=== PATIENT | male | born 1960 | race Hispanic/Latino ===

== ENCOUNTER 2017-04-29 09:11 | Inpatient (IN) | payer MEDICAID, MEDICARE ==
[2017-04-29 09:13] VITALS: BMI 19.7
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
[2017-04-29 09:59] LABS: BASO # 0.02 K/mm3 (0.0-2.0); BASO % 0.5 % (0.0-3.0); EOS # 0.1 (0.0-0.7); EOS % 1.9 % (1.5-5.0); GRAN # 2.13 (1.4-6.5); GRAN % 56.6 % (50.0-68.0); HEMATOCRIT 37.1 % (42.0-52.0); LYMPH # 1.2 (1.2-3.4); LYMPH % 30.9 % (22.0-35.0); MEAN CELL VOLUME 89.4 fl (80.0-105.0); MEAN CORPUSCULAR HEMOGLOBIN 29.9 pg (25.0-35.0); MEAN CORPUSCULAR HGB CONC 33.4 g/dl (31.0-37.0); MONO # 0.4 (0.1-0.6); MONO % 10.1 % (1.0-6.0); RED CELL DISTRIBUTION WIDTH 14.6 % (11.5-14.5); WHITE BLOOD COUNT 3.8 10^3/ul (4.5-11.0)
[2017-04-29 10:07] VITALS: O2SAT 100
[2017-04-29 10:08] LABS: ALB/GLOB RATIO 1.3 (1.1-1.8); ALKALINE PHOSPHATASE 77 U/L (38-126); ALT/SGPT 27 U/L (7-56); AST/SGOT 40 U/L (17-59); BILIRUBIN,TOTAL 0.8 mg/dL (0.2-1.3); BLOOD UREA NITROGEN 23 mg/dL (7-21); CARBON DIOXIDE 26 mmol/L (21-33); CHLORIDE 102 mmol/L (98-107); GFR AFRICAN-AMERICAN > 60; GLUCOSE,RANDOM 146 mg/dL (70-110); POTASSIUM 4.1 mmol/L (3.6-5.0); SODIUM 139 mmol/L (132-148); TOTAL PROTEIN 7.4 g/dL (5.8-8.3)
--- NOTE | 2017-04-29 10:23 | RAD ---
HISTORY: medical clearance COMPARISON: No prior. FINDINGS: LUNGS: No active pulmonary disease. PLEURA: No significant pleural effusion identified, no pneumothorax apparent. CARDIOVASCULAR: Normal. OSSEOUS STRUCTURES: No significant abnormalities. VISUALIZED UPPER ABDOMEN: Normal. OTHER FINDINGS: None. IMPRESSION: No active disease.
[2017-04-29 13:18] LABS: PH,URINE 5.5 (4.7-8.0); URINE BILIRUBIN NEGATIVE (NEGATIVE); URINE BLOOD NEGATIVE (NEGATIVE); URINE GLUCOSE (UA) NEGATIVE (NEGATIVE); URINE KETONE NEGATIVE (NEGATIVE); URINE LEUKOCYTE ESTERASE NEGATIVE Leu/uL (NEGATIVE); URINE PROTEIN NEGATIVE mg/dL (<30 mg/dL); URINE UROBILINOGEN 0.2 E.U./dL (<1 E.U./dL)
[2017-04-29 13:21] LABS: URINE APPEARANCE CLEAR (CLEAR); URINE COLOR YELLOW (YELLOW)
--- NOTE | 2017-04-29 13:32 | CARD ---
APPROVED REPORT EKG Measurement Heart [id number] SD [id number] [id number] <Conclusion> Normal sinus rhythm Possible Left atrial enlargement Borderline ECG
[2017-04-29 18:23] VITALS: RESP 20
[2017-04-29] MEDS: Multivitamin Therapeutic Tab PO SCH (18:59)
--- NOTE | 2017-04-29 19:20 | PCM.BM ---
<Manny Dillon - Last Filed: 04/30/17 12:27> Treatment Plan Problems - Problems identified on initial assessmt HOPELESSNESS Date Initiated: 04/29/17 Time Initiated: 19:18 Assessment reference: NA Status: Active INEFFECTIVE COPING Date Initiated: 04/29/17 Time Initiated: 19:19 Assessment reference: NA Status: Active ALCOHOL ABUSE Date Initiated: 04/29/17 Time Initiated: 19:20 Assessment reference: NA Status: Active Treatment assets and liabiliti Patient Assests: cooperative, self-reliant, cognitively intact Patient Liabilities: live alone, substance abuse, medical problems - Milieu Protocol Maintain good personal hygiene: daily Encourage regular showers, daily Remind patient to perform daily oral care, daily Assist patient to perform ADL's Maintain personal safety: daily Educate patient to report safety concerns to staff, daily Monitor environment for contraband/sharps Medication safety: Monitor for expected outcome, potential side effects: daily, Assess barriers to learning: daily, Assess readiness for medication education: daily Family Contact Family involvement: See/LAURA not involved Family contact: Family meeting planned to review treatment plan Discharge/Continuing Care - Education Needs Education Needs: Patient Medication, Patient Diagnosis/Disease Process, Patient Coping Skills, Patient Anger Management skills, Patient Placement options, Patient Community resources, Patient Activities of Daily Living, Patient Health Practices/Safety, Patient Personal Hygiene/Grooming, Patient Aftercare Safety Plan - Discharge Discharge Criteria: Tolerates medication w/o severe side effects, Free of Suicidal thoughts, Free of Homicidal thoughts, Normal sleep pattern, Ability to care for self, No longer exhibiting s/s of withdrawal Discharge to:: Home <Cathy Maier - Last Filed: 04/30/17 14:25> - Diagnosis (1) Substance induced mood disorder Status: Acute Interventions: 04/30/17 14:26 Psychoeducation Psychopharmacology/adjustment of medications as needed/ monitoring possible side effects Evaluate pt on daily basis Compliance with medications and follow up appointments Suicide and homicide risk assessment and prevention Relapse prevention Reduction of symptoms Improve functional status Family involvement if it is possible (2) Alcohol use disorder Status: Acute Interventions: 04/30/17 14:27 Monitoring withdrawal symptoms Medical detoxification Pharmacotherapy for alcohol/benzos/opioid dependence Maintaining sobriety Relapse prevention Possible rehabilitation Motivational interviewing 12-step programs: AA meetings <Margarita Schuler - Last Filed: 05/03/17 09:05> Family Contact Family involvement: Famliy/SO not involved
--- NOTE | 2017-04-29 22:04 | CON ---
HISTORY OF PRESENT ILLNESS: The patient is a 57-year-old male, history of polysubstance abuse, history of depression, most likely has a history of mood disorder due to chronic substance abuse. The patient came to the hospital for evaluation of depressive symptoms and possible suicidal ideations. The patient initially was cleared by this principal technical writer, but before leaving the hospital, the patient said that he wants to kill himself and if he will leave the hospital he will jump in front of the train or in front of the car. This principal technical writer will admit the patient for observation and stabilization. The patient is familiar to this principal technical writer from the previous admissions and to the psychiatric inpatient unit, which took place here in [place] 2015. The patient has history of alcohol use disorder, history of opiate use disorder, multiple admissions to the detox and rehabs in the past. The patient was evaluated in the emergency room. The patient presented to be alert and oriented. The patient said that he discussed with his because he relapse on drugs and he is drinking daily a pint of vodka as well as snorting heroin about 1 pack a day. The patient also was using benzodiazepines "once in a while." The patient reported now he feels hopeless and helpless, and he is careless about the fact that he is alive or not. At the same time, the patient's behavior proved the statement wrong. The patient is finding the way to be admitted to the hospital. At the same time, the patient was seen in [facility] yesterday and the patient was discharged. Going back to the previous history, the patient was on Seroquel as well as thiamine, folic acid and multivitamin. The patient is not on any antidepressants. PHYSICAL EXAMINATION: VITAL SIGNS: Stable. Temperature 98.7, pulse is 79, blood pressure 127/70, respirations 19, and oxygen saturation is 100%. MEDICATIONS: Reviewed. PAST MEDICAL HISTORY: The patient said that he has history of hypertension and he had back injury about 2 months ago and since that time he has chronic back pain. MENTAL STATUS EXAMINATION: The patient appears to be very thin built, cachectic male, lot of tattoos, intermittent eye contact. Flat affect. The patient was underproductive, low volume. Thought process was coherent and goal directed. Thought content, the patient denied visual, auditory, tactile hallucinations. The patient was verbalizing thoughts of killing himself with a plan to jump in front of the traffic or train; secondary gain cannot be excluded. Insight and judgment are limited. Impulses are non-predicable. IMPRESSION: Rule out substance-induced mood disorder, rule out major depressive disorder. The patient also has history of alcohol use disorder, opiate use disorder, back injury. PLAN: The patient will be admitted to the psychiatric inpatient unit for further evaluation and stabilization. The patient will be started on Remeron at the night time for insomnia as well as multivitamin, thiamine and folic acid. The patient also will be given Ativan for a possible withdrawal seizures and withdrawal symptoms. Symptomatic treatments were possible opioid withdrawals. The patient will be seen by medical team. The patient will be admitted to the psychiatric unit today. Thank you very much for letting us participate in care of your patient. Cathy Maier MD
[2017-04-30 07:46] LABS: CHOLESTEROL 154 mg/dL (130-200); GLUCOSE,FASTING 99 mg/dL (65-110)
[2017-04-30 08:03] LABS: FREE T4 0.88 ng/dL (0.78-2.19)
[2017-04-30 08:17] LABS: THYROID STIMULATING HORMONE 0.88 mIU/mL (0.46-4.68)
[2017-04-30] MEDS: Multivitamin Therapeutic Tab PO SCH (08:47)
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
[2017-04-30 18:31] LABS: IRON 92 ug/dL (45-180)
[2017-04-30 21:54] LABS: FOLATE > 20.0 ng/mL
[2017-05-01 07:44] LABS: HEMATOCRIT 36.1 % (42.0-52.0); MEAN CELL VOLUME 89.4 fl (80.0-105.0); MEAN CORPUSCULAR HGB CONC 33.5 g/dl (31.0-37.0); MEAN PLATELET VOLUME 9.6 fl (7.0-11.0); RED CELL DISTRIBUTION WIDTH 14.4 % (11.5-14.5)
[2017-05-01 07:59] LABS: WHITE BLOOD COUNT 2.7 10^3/ul (4.5-11.0)
--- NOTE | 2017-05-01 08:53 | PCM.PYCHPN ---
Psychiatric Progress Note - Psychiatric Progress Note Patient seen today, length of contact: 25 min Patient Chief Complaint: "okay" Problems Identified/Issues Discussed: I reviewed assessment and recent notes. Patient was interviewed at bedside. He is calm and oriented to month, location and year. Reports that he's feeling "okay" and denies any new concerns. Still feels a little nauseated. Responses are brief and relevant to questioning. Affect is calm and constricted. Patient denies hallucinations. Thought process is fairly coherent. Presently he denies any new side effects. Nursing notes indicate that patient has been manageable but reclusive. Not going to groups. There were no behavioral issues overnight. Diagnostic Results: r/o MDD r/o substance induced psychosis alcohol use disorder alcohol withdrawals r/o malingering Medication Change: No Medical Record Reviewed: Yes Mental Status Examination - Cognitive Function Orientation: Person, Place, Situation, Time Attention: WNL Concentration: Poor - Mood Mood: Depressed ("okay"), Anxious - Affect Affect: Constricted, Flat - Formal Thought Process Formal Thought Process: No Impairment - Suicidal Ideation Suicidal Ideation: No - Homicidal Ideation Homicidal Ideation: No Goal/Treatment Plan - Goal/Treatment Plan Progress Toward Problem(s) and Goals/Treatment Plan: * c/w current tx and plan * Taper ativan as tolerated * No new weekend labs thus far * Vitals reviewed and noted below: Selected Entries 04/30/17 04/30/17 07:18 16:00 Temperature 97.5 F L Pulse Rate 78 90 Respiratory 20 Rate Blood Pressure 135/81 143/91 H
[2017-05-01] MEDS: Multivitamin Therapeutic Tab PO SCH (10:54)
--- NOTE | 2017-05-02 00:38 | PN ---
DATE: 05/01/2017 SUBJECTIVE: This is a 57-year-old male who was examined at his bedside and his case was reviewed in detail with nursing. He was hospitalized because of suicidal ideation in the setting of recurrent depression and chronic anxiety neurosis. The patient at present has pancytopenia most likely secondary to recent alcohol abuse and misuse. The patient denies any fever, chills, shortness of breath, nausea or vomiting at present and he is tolerating diet and medication. PHYSICAL EXAMINATION VITAL SIGNS: Temperature 97.8, respirations 20, pulse 73 and blood pressure 138/91 with a pulse ox of 100% on room air. HEENT: Head is normocephalic and atraumatic. Eyes; no icterus. Ears clear. Throat non-injected. NECK: Supple. HEART: Regular S1 and S2. LUNGS: Clear. ABDOMEN: Soft. EXTREMITIES: No clubbing, no cyanosis, no edema. SKIN: Has multiple tattoos on arms and legs. VASCULAR: Legs are warmth to touch. PSYCHOLOGICAL: Alert and oriented x3. NEUROLOGIC: Grossly intact. LABORATORY DATA: White count 2700, hemoglobin 12.1, hematocrit 36.1, platelets 83,000. Sodium 139, K 4.1, chloride 102, bicarb 26, BUN 23, creatinine 0.9, random blood sugar was 146. Iron level normal 92, TIBC 327%, saturation 28% normal, ferritin 144 normal, B12 248, folate greater than 20, free T4 0.88, TSH 0.88 normal. Cholesterol 154, LDL 60, HDL 78, and triglycerides 32. Urinalysis unremarkable. Alcohol level on admission elevated at 93. Urine positive for opiates and benzodiazepine. RPR nonreactive. IMPRESSION: A 57-year-old male with pancytopenia most likely on the basis of acute alcohol abuse and chronic alcoholism with history of treated hepatitis C in his past, also with history of hypertension, and recurrent depression. Admitted with suicidal ideation and multiple medical problems as listed above. PLAN: At the present time is to maintain this patient in the psychiatric rizvi and I have placed the consultation with Phani Olea from Hematology and Oncology regarding pancytopenia. He will continue on Ativan 2 mg p.o. q.i.d., folic acid 1 mg p.o. daily, Geodon 20 mg IM t.i.d. p.r.n. agitation, Remeron 15 mg p.o. at bedtime, Seroquel 50 mg p.o. t.i.d. p.r.n. anxiety, multivitamin 1 tablet daily, thiamine 100 mg p.o. daily, Zestril 5 mg p.o. daily and he is tolerating regular diet. The patient has been informed of the consequences of his persistent abuse of alcohol and has adverse effect on his hematological systems including the pancytopenia that he currently has and the dangers of his drug misuse syndrome with his past history of hepatitis as well. The patient states that upon discharge, he will be residing with his daughter and I have expressed that he will need close outpatient follow up with his primary care physician regarding all of his medical issues as well. Hopefully, he will be compliant with these recommendations. Greater than fifty minutes was spent in the care, discussion and management of this patient today with himself, nursing and co-consultants. Krystin Kwan MD MTDSilvana
[2017-05-02] MEDS: Multivitamin Therapeutic Tab PO SCH (08:25)
--- NOTE | 2017-05-02 08:36 | PCM.PYCHPN ---
Psychiatric Progress Note - Psychiatric Progress Note Patient seen today, length of contact: 25 min Patient Chief Complaint: "okay" Problems Identified/Issues Discussed: I reviewed recent notes and patient was interviewed at bedside. He remains calm and well-oriented to month, location and year. Reports that he's feeling "okay" and improved since admission. Feel stressed because he has "a lot of things to do and a lot hanging over my head". Indicates he needs to set up his checking account and mailbox. This is why he would like to be discharged. He denies any other concerns. Nausea has remitted. Patient's responses are coherent and relevant to questioning. Affect is calm with great range today. Patient denies hallucinations. Thought process is coherent. Presently he denies any side effects. Nursing notes indicate that patient has been manageable and quiet. Socializes at times. There were no major behavioral issues over the weekend. Diagnostic Results: r/o MDD r/o substance induced psychosis alcohol use disorder alcohol withdrawals r/o malingering Medication Change: Yes (Decreased ativan from 2 mg QID to 2 mg TID on 05/02/17) Medical Record Reviewed: Yes Mental Status Examination - Cognitive Function Orientation: Person, Place, Situation, Time Attention: WNL Concentration: Poor - Mood Mood: Depressed ("okay"), Anxious - Affect Affect: Constricted, Flat - Formal Thought Process Formal Thought Process: No Impairment - Suicidal Ideation Suicidal Ideation: No - Homicidal Ideation Homicidal Ideation: No Goal/Treatment Plan - Goal/Treatment Plan Progress Toward Problem(s) and Goals/Treatment Plan: * c/w current tx and plan * Patient put in a 48 hour letter at 1 pm on 05/01/17 * Appreciate f/u by Dr. Kwan on 05/01/17~calling HEME/ONC consult for pancytopenia * Decreased ativan from 2 mg QID to 2 mg TID on 05/02/17, continue taper as tolerated * Vitals reviewed and noted below: Selected Entries 05/02/17 05/02/17 07:18 08:25 Temperature 97.4 F L Pulse Rate 76 76 Respiratory 20 Rate Blood Pressure 138/87 138/87 * Weekend labs noted below: Laboratory Results - last 24 hr 05/01/17 07:30 WBC 2.7 L* D RBC 4.04 Hgb 12.1 L Hct 36.1 L MCV 89.4 MCH 30.0 MCHC 33.5 RDW 14.4 Plt Count 83 L MPV 9.6
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
--- NOTE | 2017-05-02 20:58 | PN ---
DATE: 05/02/2017 SUBJECTIVE: This 57-year-old male remains hospitalized in room 508, bed 1. His case was reviewed in detail with himself and his nurse, Jackson Maciel RN. The patient remains anxious. He is being followed daily by psychiatry and has multiple medical problems including anxiety, recurrent depression, suicidal ideation, chronic hypertension and pancytopenia in the setting of alcohol abuse. The patient at present denies any fever or chills, chest pain, shortness of breath, nausea, vomiting or diarrhea. PHYSICAL EXAMINATION: GENERAL: Temperature is 97.4, respirations 20, pulse 76 and blood pressure 138/87, and pulse ox was 100% on room air. HEENT: Head is normocephalic and atraumatic. Eyes, no icterus. NECK: Supple. HEART: Regular S1 and S2. LUNGS: Clear. ABDOMEN: Soft. EXTREMITIES: No edema. SKIN: Without rash. NEUROLOGICAL: Intact. PSYCHOLOGICAL: Chronic anxiety. VASCULAR: Legs warm to touch. LABORATORY DATA: White count 2700, hemoglobin 12.1, hematocrit 36.1, platelets 83,000. Sodium 139, potassium 4.1, chloride 102, bicarb 26, BUN 23, creatinine 0.9, random blood sugar 99. Iron level 92, TIBC 327%, saturation 28%, ferritin 144. Cholesterol 154, B12 of 248, folic acid level greater than 20, free T4 normal at 0.88. Urinalysis unremarkable. Urine drug screen positive for opiates and benzodiazepine. Alcohol level 93 on admission. RPR nonreactive. IMPRESSION: This is a 57-year-old male with anxiety, depression, suicidal ideation, history of chronic hypertension, now with pancytopenia in the setting of alcohol abuse and misuse and history of treated hepatitis C in his past. PLAN: At present is to continue Zestril 5 mg p.o. daily, thiamine 100 mg p.o. daily, multivitamin 1 tablet p.o. daily, Seroquel 50 mg p.o. t.i.d. p.r.n., Remeron 15 mg p.o. at bedtime, folic acid 1 mg p.o. daily and Ativan 2 mg p.o. t.i.d. He continues on a regular diet. He is being monitored closely by the psychiatric nursing team. He is awaiting a hematology evaluation for pancytopenia by Dr. Stephen Jeronimo. He will need close outpatient psychiatric and medical follow up with his PMD when cleared for discharge. All of the above was discussed in detail with the patient and nursing, and overall prognosis remains poor given his multiple comorbidities and persistent history of alcohol and drug including heroin misuse. Krystin Kwan MD MTDD
[2017-05-03 07:23] VITALS: BP 125/92; PULSE 77; TEMP 98.1
[2017-05-03] MEDS: Multivitamin Therapeutic Tab PO SCH (08:44)
--- NOTE | 2017-05-03 18:50 | PN ---
DATE: 05/03/2017 SUBJECTIVE: This 57-year-old male is being readied for discharge. He has signed a 48-hour notice and has been cleared by Psychiatry. He was seen by Dr. Abbasi from Hematology/Oncology regarding pancytopenia, and she concurs with the assessment that is multifactorial and the possible etiology being hypersplenism secondary to alcohol abuse, misuse and vitamin B12 deficiency. She did administer one dose of vitamin B12 parenterally and has reinforced with the patient the importance of follow-up with his PMD, Dr. Dill, for further vitamin B12 supplementation, and he has been advised that he may take sublingual B12 as well. PHYSICAL EXAMINATION: VITAL SIGNS: Temperature 98.1, respirations 20, pulse 77, blood pressure 125/92, pulse ox 100% on room air. HEENT: Head normocephalic, atraumatic. Eyes: No icterus. NECK: Supple. HEART: Regular S1 and S2. LUNGS: Clear. ABDOMEN: Soft. EXTREMITIES: No edema. SKIN: Without rash. NEUROLOGIC: Unchanged. PSYCHOLOGIC: Alert. VASCULAR: Legs warm to touch. LABORATORY DATA: Most recent labs, white count 2,700, hemoglobin 12.1, hematocrit 36.1, platelets 83,000. Sodium 139, potassium 4.1, chloride 102, bicarb 26, BUN 23, creatinine 0.9, random blood sugar 99, percent saturation 28, iron level 92, ferritin level 144. All liver function testing normal with bilirubin 0.8, AST 40, ALT 27 and alk phos 77. Cholesterol 154, folate greater than 20. T4 normal, free T4 normal 0.88. Urinalysis unremarkable. Urine drug screen positive for opiates and benzodiazepines. Admission alcohol level 93 and RPR serology nonreactive. IMPRESSION: A 57-year-old male with leukopenia and thrombocytopenia in the setting of alcohol abuse and misuse and probable hypersplenism with probable alcoholic cirrhosis with comorbidities of borderline low B12 levels that will need to be supplemented as well as chronic hypertension, history of treated hepatitis C, and history of anxiety, depression, recent suicidal ideation and history of alcohol abuse and misuse as well as heroin abuse and misuse. The patient has been cleared by Dr. Cathy Maier for discharge from a psychiatric standpoint. He has been instructed to follow up with his primary medical doctor, Dr. Dill, within the next 48 hours. He should continue on antihypertensive medication as an outpatient. He is aware of all the above issues and the deleterious effects, his persistent misuse behavior will have on his overall health, and hopefully will be compliant with cessation of alcohol and drug abuse and follow up with PMD. His overall prognosis remains poor. Krystin Kwan MD MTDD
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
== END 2017-05-03 12:04 | disposition home or self-care (01) | DRG 744 ==
LOC: ED 09:11 → PSYC 15:12
PROVIDERS: ADMIT Psychiatry & Neurology Psychiatry; ATTEND Psychiatry & Neurology Psychiatry
DX: F19.14 Other psychoactive substance abuse with psychoactive substance-induced mood disorder (principal); F11.10 Opioid abuse, uncomplicated; D61.818 Other pancytopenia; R45.851 Suicidal ideations; K70.30 Alcoholic cirrhosis of liver without ascites; N18.9 Chronic kidney disease, unspecified; E53.8 Deficiency of other specified B group vitamins; R64 Cachexia; F33.9 Major depressive disorder, recurrent, unspecified; F10.239 Alcohol dependence with withdrawal, unspecified; I12.9 Hypertensive chronic kidney disease with stage 1 through stage 4 chronic kidney disease, or unspecified chronic kidney disease; Z68.23 Body mass index [BMI] 23.0-23.9, adult; Z86.19 Personal history of other infectious and parasitic diseases; D73.1 Hypersplenism; F41.1 Generalized anxiety disorder; Y90.4 Blood alcohol level of 80-99 mg/100 ml; Z91.11 Patient's noncompliance with dietary regimen; Z59.0 Homelessness